=== PATIENT | female | born 1940 | race Caucasian/White ===

== ENCOUNTER → 2017-10-29 10:26 | Outpatient (CLI) | payer MEDICARE, OTHER, SELFPAY ==
--- NOTE | 2017-10-29 10:31 | FL_ITS ---
FL barium swallow modified: 10/29/2017 10:31 AM CLINICAL HISTORY: Silent aspiration following stroke, dysphasia ORDERING PHYSICIAN: Freddy Guerra MD PATIENT AGE: 77 years TECHNIQUE: Patient administered varying consistencies of barium contrast, while viewed in lateral position under real-time fluoroscopy with cine recording. Please see speech pathologist report for description of consistencies FLUOROSCOPY TIME: 4 minutes and 43 seconds The study was performed in conjunction with speech pathologist. Please see that report & recommendations. FINDINGS: There was oral motor delay with forming the bolus. There was difficulty with bolus propulsion with the pill and then wash. There was penetration with nectar consistency with cough but no aspiration. Chin technique procedure performed with improvement. Gentle technique performed with the head turned to the left. No evidence of aspiration with nectar. IMPRESSION: Vestibular penetration with nectar consistency which improves with modified chin tuck Please see speech pathologist report and recommendations.
== END ==
PROVIDERS: PCP Family Medicine; Visit Provider Family Medicine
DX: R13.10 Dysphagia, unspecified (principal)
CPT/HCPCS: 70371; 92611